=== PATIENT | female | born 1965 | race Two or more races ===

== ENCOUNTER 2017-03-30 16:48 | Inpatient (IN) | payer OTHER ==
[~2017-03-30] VITALS: Ht 157.5 cm; Wt 80.0 kg
[~2017-03-30 16:48] MED LIST: FER325 PO
[2017-03-30 17:40] VITALS: Ht 157.5 cm; Wt 80.0 kg
[2017-03-30 18:00] VITALS: BP 141/66; RESP 18
[2017-03-30] MEDS ORDERED: DOCUSATE SODIUM 100 MG CAP PO PRN (19:30)
[2017-03-30] MEDS ORDERED: hydrALAzine 20 MG INJ IV PRN (19:30)
[2017-03-30] MEDS ORDERED: NACL 0.9% 3 ML SYG IV SCH (19:30)
[2017-03-30] MEDS ORDERED: NITROGLYCERIN (SL) 0.4 MG TAB SL PRN (19:30)
[2017-03-30] MEDS ORDERED: ACETAMINOPHEN 325 MG TAB PO PRN (19:30)
[2017-03-30] MEDS ORDERED: morphine 2 MG INJ IV PRN (19:30)
[2017-03-30] MEDS ORDERED: ONDANSETRON 4 MG INJ IV PRN (19:30)
[2017-03-30] MEDS ORDERED: ALBUTEROL/IPRATROPIUM (NEB) 3 ML AMP HHN PRN (19:30)
[2017-03-30] MEDS ORDERED: LORAZEPAM 2 MG INJ IV PRN (19:30)
[2017-03-30] MEDS ORDERED: NA PHOSPHATE/BIPHOS 133 ML ENEMA PR PRN (19:30)
[2017-03-30] MEDS ORDERED: MAGNESIUM HYDROXIDE 30ML CUP PO PRN (19:30)
[2017-03-30 19:35] VITALS: BP 125/59; RESP 18
[2017-03-30] MEDS: SOD CHLORIDE 0.45% 1,000 ML IV SCH (20:11)
[2017-03-30 20:14] LABS: INR 1.18; PROTIME 15.1 Sec (12.2-14.2); PT RATIO 1.2
[2017-03-30 20:15] LABS: PARTIAL THROMBOPLASTIN TIME 29.1 Sec (25.0-35.0)
--- NOTE | 2017-03-30 20:34 | HP ---
DATE OF ADMISSION: 03/30/2017 CHIEF COMPLAINT: Low back pain, nausea, vomiting. HISTORY OF PRESENT ILLNESS: A 51-year-old female with past medical history of questionable ovarian mass diagnosed 1 month ago, anemia with prior blood transfusions, questionable heart disease, prior UTI, who was transferred from outside hospital due to insurance purposes. Apparently, she had presented over there with symptoms of low back pain for about 3 or 4 days as well as nausea symptoms. No hematuria, no dysuria. She also had some nonbilious, nonbloody vomiting symptoms. Denies any fevers or chills. No shortness of breath, no chest pain. Apparently she was in [place] about a month ago and had some kind of UTI infection and also told she was anemic at that time, but did not seek treatment. She was also told that she may be having some kind of mass in her uterus and ovary, but denies any vaginal bleeding or other upper or lower GI bleeding, or no pelvic discharge. When she had presented to the outside hospital today, she was found with a hemoglobin 6.2 and given 2 units of PRBC transfusion. Afterwards, they checked blood again before being transferred over here and hemoglobin came up to around 8.5 range. She also had imaging studies performed at the outside hospital. Specifically, CT abdomen and pelvis that does show a complex solid left adnexal mass measuring 7.7 by 5.7 by 7.2 cm, may represent a hemorrhagic cyst, underlying benign or malignant adnexal neoplasm cannot be excluded. They are recommending a gynecologic consult, and then she also had a chest x-ray that was performed and showed left upper lobe lung nodule, likely represents a calcified granuloma. She also had a pelvic ultrasound that showed a relatively large solid appearing left adnexal mass with likely some internal flow measuring 8.2 by 6.6 by 6.2 cm. The left ovary is not seen separate from the mass and may represent a hemorrhagic cyst as well. PAST MEDICAL HISTORY: As above. ALLERGIES: NO KNOWN DRUG ALLERGIES. HOME MEDICATIONS: Unknown. PAST SURGICAL HISTORY: She has had in the past. FAMILY HISTORY: Noncontributory. SOCIAL HISTORY: Occasional smoking history. PHYSICAL EXAMINATION: VITAL SIGNS: Today vital signs, T-max 99.0, pulse 86, respirations 18, blood pressure 141/66. GENERAL: The patient is lying in bed, in no acute distress. HEENT: Pupils equal, round, react to light. Extraocular muscles intact. NECK: Supple. No thyromegaly. LUNGS: Clear to auscultation bilaterally. CARDIOVASCULAR: S1, S2 heard. No rubs or gallops. ABDOMEN: Soft, nontender, nondistended. Normal bowel sounds. No rebound or guarding. MUSCULOSKELETAL: No lower extremity edema bilaterally. NEUROLOGIC: No focal deficits. LABORATORY DATA: Initial hemoglobin was 6.3, hematocrit 22.0 platelets 226, white count 6.6, and after the blood transfusion given earlier today, WBC 7.5, hemoglobin 8.7, hematocrit 27.6, platelets of 159. Sodium 137, potassium 3.3, chloride 106, CO2 22, BUN of 12, creatinine 0.46, glucose of 100. LFTs are normal except total bilirubin was 1.3 with a direct of 0.1. Beta hCG test was negative, UA was negative, nitrites negative, leukocyte esterase, although it was hazy. ASSESSMENT AND PLAN: A 51-year-old female with low back pain, abdominal pain, nausea and vomiting for 3 days with findings of adnexal mass and anemia. 1. Low back pain, abdominal pain, nausea, and vomiting,: Likely secondary to patient's adnexal mass as well as her anemia, so we will admit patient to medical/surgical floor. She has gotten PRBC transfusion and will follow post transfusion CBC. Will check TSH, A1c lipid panel, will get obstetric/gynecologic consult as well to further evaluate the adnexal mass. Put on IV fluids, pain control medications, antiemetics as well. If there are any significant abnormalities from the obstetric/gynecologic perspective regarding this adnexal mass, she may benefit from biopsy and/or gynecology/oncology consult, but will first follow up their recommendations. 2. History of prior urinary tract infections. Urinalysis on outside hospital was negative. Monitor for now. IV fluids. 3. History of prior anemia. Again, see number 1. 4. Questionable heart disease. Consider checking 2D echocardiogram. Vital signs appear to be stable at this point. 5. Gastrointestinal prophylaxis. PPI. 6. Deep vein thrombosis prophylaxis. SCDs. Dictated By: Junior Case MD /priscilla/jadielc /Document#: [id number]
[2017-03-30] MEDS: HEPARIN 5,000 UNIT/0.5 ML VIAL SC SCH (21:00)
--- NOTE | 2017-03-30 21:01 | CONS ---
Date/Time of Note Date/Time of Note DATE: 03/30/17 TIME: 20:01 Assessment/Plan Assessment/Plan Additional Assessment/Plan 51yo perimenopausal P2 with LUQ pain, a large symptomatic pelvic mass and symptomatic anemia being admitted for management of anemia ->Discussed with pt results from U/S and CT scan and differential diagnosis includes benign and malignant etiologies ->Exam today w/o concern for acute gynecological process such as torsion or cyst rupture ->Recommend checking CA-125 and obtaining a Gynecologic Oncology consult ->Will defer management of anemia and LUQ pain to primary team Patient's questions answered to her satisfaction based on the information currently available Consultation Date/Type/Reason Admit Date/Time Mar 30, 2017 at 17:04 Type of Consultation: Gynecology Reason for Consultation pelvic mass Hx of Present Illness 51yo with long hx of anemia and multiple transfusions (every 6mths in [place] [facility] [place] service 2/2 symptomatic anemia requiring transfusion as well as LUQ and pelvic pain. Pt has known hx of pelvic mass and associated abdominal pain, worsening over the last 3d. Pt states she has had 8wks of intermittent pelvic pain, at times worse than others. She had an ultrasound 2mths ago in [place] and was diagnosed with a pelvic mass and was recommended to see a specialist, however she never followed up. On 03/25, pt states the pain became worse and remained so for the next few days. Pt has been taking ASA 230mg x4 for pain with good effect. Tolerating POs, denies N/V at this time, vaginal bleeding, or vaginal discharge. Pain currently minimal states pt at 5/10. Declines need for pain meds. PERIODONTIST Hx: s/p C/S x2. LMP 03/04/17. Regular qmth menses since 07/2016, prior to this, menses were irregular (skipping 1-2 months at a time). Between 2012- 2014 pt states she was amenorrheic. +dysmenorrhea, +heavy bleeding. +hot flashes x6yrs. Med Hx: anemia, otherwise denies Surg Hx: C/S x2 Soc Hx: , monogamous relationship x33yrs U beta hCG negative (from [facility]) US Pelvis (03/30/17 0752 from [facility]) Uterus measures 15x8.6x5.8cm. Posterior fundal intramural fibroid measures 3.9x3.5x2.1cm. Endometrial echo complex diffusely heterogenous and measures up to 16mm. No significant blood/fluid or debris in the endometrial cavity. No increased flow in the EEC region. No significant pelvic free fluid. Right ovarian volume is 26mL. A simple appearing right ovarian cyst or follicle is noted measuring up to 2.5cm. Normal flow documented to the right ovary. The left ovary is not seen. A relatively large solid-appearing left adnexal mass noted with likely some internal flow with color Doppler. The mass is heterogenous in echotexture and measures about 8.2x6.6x6.2cm by ultrasound. This may represent a hemorrhagic cyst. Adnexal origin cannot be excluded. Underlying benign or malignant adnexal neoplasm also cannot be excluded. CT A/P (03/30/17 0255 from [facility]) Complex solid left adnexal mass measures 7.7x5.7x7.2cm. Internal high attenuation may represent blood products. This may represent a hemorrhagic cyst. The left ovary is not seen separate from the mas by CT or ultrasound. Adnexal torsion is on the differential. Underlying benign or malignant adnexal neoplasm also can't be excluded. No pelvic free fluid. Small bilateral external iliac and inguinal lymph nodes. Small right lower quadrant mesenteric lymph nodes. Social History Smoking Status: Current some day smoker Drug Use: none Exam/Review of Systems Vital Signs Vitals Vital Signs Date Time Temp Pulse Resp B/P Pulse Ox O2 Delivery O2 Flow Rate FiO2 03/30/17 19:35 98.2 18 125/59 99 03/30/17 18:00 86 Exam Pt declines pelvic exam Constitutional: alert, obese, oriented, No distress Head: atraumatic, normocephalic Eyes: nl conjunctiva Respiratory: clear to auscultation Cardiovascular: regular rate and rhythm Gastrointestinal: bowel sounds, soft, tender (generalized TTP in LUQ, RLQ, LLQ , worse LUQ and RLQ), No distended, No mass, No rebound or guarding Medications Medications Current Medications Ondansetron HCl (Zofran Inj) 4 mg Q6H PRN IV NAUSEA AND/OR VOMITING; Start 03/30 at 19:30 Acetaminophen (Tylenol Tab) 650 mg Q6H PRN PO PAIN LEVEL 1-3 OR FEVER; Start at 19:30 Acetaminophen/ Hydrocodone Bitart ([place] (5/325)) 1 tab Q6H PRN PO MODERATE PAIN LEVEL 4-6; Start 03/30/17 at 19:30 Morphine Sulfate (morphine) 2 mg Q4H PRN IV SEVERE PAIN LEVEL 7-10; Start at 19:30 Docusate Sodium (Colace) 100 mg Q12H PRN PO CONSTIPATION; Start 03/30/17 at 19: 30 Magnesium Hydroxide (Milk Of Mag) 30 ml DAILY PRN PO CONSTIPATION; Start at 19:30 Sodium Biphosphate/ Sodium Phosphate (Fleet Enema) 133 ml DAILY PRN [place] CONSTIPATION; Start 03/30/17 at 19:30 Pantoprazole (Protonix Tab) 40 mg DAILY@06 PO ; Start 03/31/17 at 06:00 Heparin Sodium (Porcine) 5000 unit 5,000 unit Q12 SC ; Start 03/30/17 at 21:00 Sodium Chloride (1/2 NS) 1,000 ml @ 75 mls/hr [id number] IV ; Start 03/30/17 at 19: 30 Lorazepam (Ativan) 0.5 mg Q6H PRN IV ANXIETY; Start 03/30/17 at 19:30 Hydralazine HCl (Apresoline) 10 mg Q6H PRN IV SBP GREATER THAN 180; Start at 19:30 Nitroglycerin (Nitroglycerin (Sl Tab) 0.4 Mg) 1 tab Q5M PRN SL ANGINA; Start at 19:30 CHRIS RHODES MD Mar 30, 2017 20:11
[2017-03-31 02:12] VITALS: BP 128/63; RESP 18
[2017-03-31] MEDS: PANTOPRAZOLE (EC) 40 MG TAB PO SCH (06:29)
[2017-03-31 06:55] LABS: ABNORMAL IP MESSAGE 1; BASOPHILS % 0.5 % (0.0-2.0); EOSINOPHILS # 0.1 10^3/ul (0.0-0.5); EOSINOPHILS % 1.2 % (0.0-7.0); HEMATOCRIT 27.9 % (37.0-47.0); HEMOGLOBIN 7.6 g/dl (12.0-16.0); LYMPHOCYTES # 0.6 10^3/ul (0.8-2.9); LYMPHOCYTES % 9.8 % (15.0-51.0); MEAN CORPUSCULAR HEMOGLOBIN 18.3 pg (29.0-33.0); MEAN CORPUSCULAR HGB CONC 27.2 g/dl (32.0-37.0); MEAN CORPUSCULAR VOLUME 67.2 fl (82.0-101.0); MONOCYTE # 0.5 10^3/ul (0.3-0.9); NEUTROPHILS % 79.2 % (39.0-77.0); NUCLEATED RED BLOOD CELLS% 0.3 /100WBC (0.0-0.0); PLATELET COUNT 161 10^3/UL (140-415); RED BLOOD COUNT 4.15 10^6/ul (4.20-5.40); RED CELL DISTRIBUTION WIDTH 24.3 % (11.5-14.5)
[2017-03-31 07:14] LABS: POSITIVE DIFF @See below
[2017-03-31 07:30] LABS: CALCIUM 8.2 mg/dl (8.4-10.2); CHOL/HDL RATIO 3.2 RATIO; CREATININE 0.61 mg/dl (0.44-1.00); MAGNESIUM 1.9 mg/dl (1.7-2.5); PHOSPHORUS 4.7 mg/dl (2.5-4.9); POTASSIUM 3.1 mmol/L (3.5-5.1)
[2017-03-31] MEDS: HEPARIN 5,000 UNIT/0.5 ML VIAL SC SCH (09:00)
[2017-03-31] MEDS: SOD CHLORIDE 0.45% 1,000 ML IV SCH ×2 (09:28→22:10)
[2017-03-31 10:22] LABS: THYROID STIMULATING HORMONE 1.25 MIU/L (0.465-4.680)
[2017-03-31] MEDS ORDERED: POTASSIUM CHLORIDE (SR) 20 MEQ TAB PO STA (10:38)
--- NOTE | 2017-03-31 10:54 | PN ---
Date/Time of Note Date/Time of Note DATE: 03/31/17 TIME: 10:50 Assessment/Plan VTE Prophylaxis VTE Prophylaxis Intervention: contraindicated Lines/Catheters [facility] Per[facility] IV Assessment/Plan Chief Complaint/Hosp Course ASSESSMENT AND PLAN: A 51-year-old female with low back pain, abdominal pain, nausea and vomiting for 3 days with findings of adnexal mass and anemia. 1. Low back pain, abdominal pain, nausea, and vomiting,: Symptoms have improved since admission. Likely secondary to patient's adnexal mass as well as her anemia. She received 2 units PRBC transfusion yesterday. Hemoglobin 7.6 today. CA 125 was 12.3, normal. -Follow-up TSH, A1c lipid panel, as well as obstetric/gynecologic consult recommendation as well to further evaluate the adnexal mass. -Continue pain control medications, IV fluids, will also order for IV iron and check iron panel, although strong suspicion microcytic anemia secondary to iron deficiency -We will repeat hemoglobin/hematocrit, if still less than 8, consider another blood transfusion today. -We will also order for guaiac stool. 2. History of prior urinary tract infections. Urinalysis on outside hospital was negative. Monitor for now. IV fluids. 3. History of prior anemia. Again, see number 1. 4. Questionable heart disease. Consider checking 2D echocardiogram. Vital signs appear to be stable at this point. 5. Gastrointestinal prophylaxis. PPI. 6. Deep vein thrombosis prophylaxis. SCDs. Problems: Subjective 24 Hr Interval Summary Free Text/Dictation Denies any bleeding from below, no chest pain or abdominal pain. Seen by OB/ HAMPER MAKER team yesterday. Exam/Review of Systems Vital Signs Vitals Vital Signs Date Time Temp Pulse Resp B/P Pulse Ox O2 Delivery O2 Flow Rate FiO2 03/31/17 02:12 99.5 85 18 128/63 99 Intake and Output 03/30/17 03/30/17 03/31/17 15:00 23:00 07:00 Intake Total 400 ml Balance 400 ml Exam GENERAL: The patient is lying in bed, in no acute distress. HEENT: Pupils equal, round, react to light. Extraocular muscles intact. NECK: Supple. No thyromegaly. LUNGS: Clear to auscultation bilaterally. CARDIOVASCULAR: S1, S2 heard. No rubs or gallops. ABDOMEN: Soft, nontender, nondistended. Normal bowel sounds. No rebound or guarding. MUSCULOSKELETAL: No lower extremity edema bilaterally. NEUROLOGIC: No focal deficits. Results Result Diagram: 03/31/1726 03/31/17 0526 Results 24 hrs Laboratory Tests Test 03/30/17 19:26 03/31/17 05:26 Prothrombin Time 15.1 H Prothrombin Time Ratio 1.2 INR International Normalized Ratio 1.18 Activated Partial Thromboplast Time 29.1 Free Thyroxine 1.05 White Blood Count 6.0 Red Blood Count 4.15 L Hemoglobin 7.6 L Hematocrit 27.9 L Mean Corpuscular Volume 67.2 L Mean Corpuscular Hemoglobin 18.3 L Mean Corpuscular Hemoglobin Concent 27.2 L Red Cell Distribution Width 24.3 #H Platelet Count 161 Mean Platelet Volume Neutrophils % 79.2 H Lymphocytes % 9.8 L Monocytes % 9.0 Eosinophils % 1.2 Basophils % 0.5 Nucleated Red Blood Cells % 0.3 H Neutrophils # (Manual) 4.8 Lymphocytes # 0.6 L Monocytes # 0.5 Eosinophils # 0.1 Basophils # 0.0 Nucleated Red Blood Cells # 0.0 Sodium Level 138 Potassium Level 3.1 L Chloride Level 104 Carbon Dioxide Level 23 Anion Gap 14 Blood Urea Nitrogen 8 Creatinine 0.61 Glucose Level 87 Hemoglobin A1c 5.0 Calcium Level 8.2 L Phosphorus Level 4.7 Magnesium Level 1.9 Triglycerides Level 108 Cholesterol Level 115 LDL Cholesterol, Calculated 58 HDL Cholesterol 35 L Cholesterol/HDL Ratio 3.2 CA 125 Antigen 12.3 Thyroid Stimulating Hormone (TSH) 1.250 Medications Medications Current Medications Ondansetron HCl (Zofran Inj) 4 mg Q6H PRN IV NAUSEA AND/OR VOMITING Last administered on 03/30/17 21:42; Admin Dose 4 MG; Start 03/30/17 at 19:30 Acetaminophen (Tylenol Tab) 650 mg Q6H PRN PO PAIN LEVEL 1-3 OR FEVER; Start at 19:30 Acetaminophen/ Hydrocodone Bitart ([place] (5/325)) 1 tab Q6H PRN PO MODERATE PAIN LEVEL 4-6; Start 03/30/17 at 19:30 Morphine Sulfate (morphine) 2 mg Q4H PRN IV SEVERE PAIN LEVEL 7-10 Last administered on 03/30/17 21:42; Admin Dose 2 MG; Start 03/30/17 at 19:30 Docusate Sodium (Colace) 100 mg Q12H PRN PO CONSTIPATION; Start 03/30/17 at 19: 30 Magnesium Hydroxide (Milk Of Mag) 30 ml DAILY PRN PO CONSTIPATION; Start at 19:30 Sodium Biphosphate/ Sodium Phosphate (Fleet Enema) 133 ml DAILY PRN [place] CONSTIPATION; Start 03/30/17 at 19:30 Pantoprazole 40 mg 40 mg DAILY@06 PO Last administered on 03/31/17 06:29; Admin Dose 40 MG; Start 03/31/17 at 06:00 Sodium Chloride (1/2 NS) 1,000 ml @ 75 mls/hr [id number] IV Last administered on 03/31/17 09:28; Admin Dose 75 MLS/HR; Start 03/30/17 at 19:30 Lorazepam (Ativan) 0.5 mg Q6H PRN IV ANXIETY; Start 03/30/17 at 19:30 Hydralazine HCl (Apresoline) 10 mg Q6H PRN IV SBP GREATER THAN 180; Start at 19:30 Nitroglycerin (Nitroglycerin (Sl Tab) 0.4 Mg) 1 tab Q5M PRN SL ANGINA; Start at 19:30 SOCORRO HURTADO Mar 31, 2017 10:54
--- NOTE | 2017-03-31 10:58 | QN ---
Documentation Comment PROOFER Laborist PT d/w FOOD SAFETY SCIENTIST ONC, Dr. Rush, who requested additional labs: alpha fetoprotein, LDH, Bhcg and HE4. Dr. Rush has agreed to see the patient in consultation. Plan d/w on-call Hospitalist, Dr. Neely ([phone]). CHRIS RHODES MD Mar 31, 2017 10:58
[2017-03-31 11:03] LABS: HEMATOCRIT 28.8 % (37.0-47.0); HEMOGLOBIN 8.3 g/dl (12.0-16.0)
[2017-03-31 11:41] LABS: IRON 27 ug/dl (35-150)
[2017-03-31 11:50] LABS: TOTAL IRON BINDING CAPACITY 395 ug/dl (241-421)
[2017-03-31] MEDS: SOD FERRIC GLUC COMPLX 125 MG in SOD CHLORIDE 0.9% 100 ML IVPB SCH (13:23)
[2017-03-31 13:52] VITALS: BP 127/60; RESP 18
[2017-03-31 20:16] VITALS: BP 127/60; RESP 18
[2017-03-31] MEDS: HYDROCODONE/APAP (5/325) TAB PO PRN (22:24)
[2017-04-01 02:34] VITALS: BP 119/62; RESP 16
[2017-04-01] MEDS: SOD CHLORIDE 0.45% 1,000 ML IV SCH ×2 (05:05→11:30)
[2017-04-01] MEDS: PANTOPRAZOLE (EC) 40 MG TAB PO SCH (05:07)
[2017-04-01 06:18] LABS: ABNORMAL IP MESSAGE 1; EOSINOPHILS # 0.2 10^3/ul (0.0-0.5); EOSINOPHILS % 3.7 % (0.0-7.0); HEMATOCRIT 28.2 % (37.0-47.0); HEMOGLOBIN 7.6 g/dl (12.0-16.0); LYMPHOCYTES # 0.9 10^3/ul (0.8-2.9); MEAN CORPUSCULAR HEMOGLOBIN 18.6 pg (29.0-33.0); MEAN CORPUSCULAR VOLUME 69.1 fl (82.0-101.0); MONOCYTE # 0.5 10^3/ul (0.3-0.9); MONOCYTES % 13.1 % (0.0-11.0); NEUTROPHILS % 60.7 % (39.0-77.0); PLATELET COUNT 153 10^3/UL (140-415); RED BLOOD COUNT 4.08 10^6/ul (4.20-5.40); RED CELL DISTRIBUTION WIDTH 25.1 % (11.5-14.5); WHITE BLOOD COUNT 4.1 10^3/ul (4.8-10.8)
[2017-04-01 06:23] LABS: POSITIVE DIFF @See below
[2017-04-01 06:40] LABS: CALCIUM 8.5 mg/dl (8.4-10.2); CREATININE 0.62 mg/dl (0.44-1.00); POTASSIUM 3.5 mmol/L (3.5-5.1)
[2017-04-01 07:25] VITALS: BP 125/66; RESP 20
[2017-04-01] MEDS: SOD FERRIC GLUC COMPLX 125 MG in SOD CHLORIDE 0.9% 100 ML IVPB SCH (13:06)
--- NOTE | 2017-04-01 14:10 | CONS ---
Date/Time of Note Date/Time of Note DATE: 04/01/17 TIME: 14:08 Consultation Date/Type/Reason Admit Date/Time Mar 30, 2017 at 17:04 Reason for Consultation Jeet Parra M.D. [facility] History and Physical Examination Leatha Pacheco Date:Mar 31, 2017 :1965 Age: 51 Physicians: Consumer Affairs Manager Director Of Sales Support Oncologist Referring MD: History of the Present Illness: A 51 year old female with a gradually increasing pelvic mass. The mass is complex and 7-8 cm left sided with a normal CA-125 and associated with anemia, pain and N/V. There was a suggestion of a mass a month ago uncertain detail and now detail provided and transferred from [place]. Medical history/ROS: all other systems unremarkable. Surgical history: no significant abdominal procedures. Medications: reviewed gardisil Allergies: No active allergies recorded Family Hx: non-contributary Social HX: non-contributary ROS: as above Colonoscopy Physical Examination General: Alert. HEENT: Pupils are equal, round, reactive to light and accommodation. Neck: Supple with no masses of lymphadenopathy. Breast: Deferred due to recent examination and responsibility of primary care physician. Chest: Clear to auscultation Heart: Normal rhythm with no murmur. Abdomen: Moderately tender lower abd and s/p and LLQ with no rebound , no ascites nor organomeglay. Pelvic exam: deferred as she has refused mulltiple doctors Rectal: same Neurological: Grossly intact Ext: Nt no edema Assessment: Pelvic mass, likely intermittent torsions vs chronic corpus luteum, both accounting for anemia, vs cancer with hemorrhage (epithelial vs germ cell athough a bit elderly vs stromal cell) Plan: Discussed assessments and options with risks and benefits in detail with interprtors multiple times; 1- Will orer HE4 to further r/o epithelial, LDH, bHCG, aFP to r/o germ cell CA, and inhibin levels to r/o granulosa cell cancer although some may take a long time to get and surgery needed as mass with hematoma and pain is at risk for further anemia and infection; abscess; discssed in dedail 2- laparoscopic USO, possible possible hysterectomy with BSO, posible staging, possible open ANTICIPATE SATURDAY OR SAT PENDING OPERATING TIME AVAILABILITY. All risks and benefits of this procedure have been discussed in detail with the patient, as well as alternative treatment strategies and their implications. The patient is aware that there is some possibility of a blood transfusion and its associated risks and benefits. She wishes to proceed and gives her informed consent. Jeet Parra M.D. Social History Smoking Status: Current some day smoker Drug Use: none Exam/Review of Systems Vital Signs Vitals Vital Signs Date Time Temp Pulse Resp B/P Pulse Ox O2 Delivery O2 Flow Rate FiO2 04/01/17 07:25 98.3 59 20 125/66 99 Intake and Output 03/31/17 03/31/17 04/01/17 15:00 23:00 07:00 Intake Total 1110 ml 1600 ml 1700 ml Balance 1110 ml 1600 ml 1700 ml Results Result Diagram: 04/01/17 0514 04/01/17 0514 Results 24 hrs Laboratory Tests Test 04/01/17 05:14 White Blood Count 4.1 #L Red Blood Count 4.08 L Hemoglobin 7.6 L Hematocrit 28.2 L Mean Corpuscular Volume 69.1 L Mean Corpuscular Hemoglobin 18.6 L Mean Corpuscular Hemoglobin Concent 27.0 L Red Cell Distribution Width 25.1 H Platelet Count 153 Mean Platelet Volume Neutrophils % 60.7 Lymphocytes % 21.0 Monocytes % 13.1 H Eosinophils % 3.7 Basophils % 1.0 Nucleated Red Blood Cells % 0.0 Neutrophils # (Manual) 2.5 Lymphocytes # 0.9 Monocytes # 0.5 Eosinophils # 0.2 Basophils # 0.0 Nucleated Red Blood Cells # 0.0 Sodium Level 141 Potassium Level 3.5 Chloride Level 106 Carbon Dioxide Level 24 Anion Gap 15 Blood Urea Nitrogen 7 Creatinine 0.62 Glucose Level 75 Calcium Level 8.5 Medications Medications Current Medications Ondansetron HCl (Zofran Inj) 4 mg Q6H PRN IV NAUSEA AND/OR VOMITING Last administered on 03/30/17t 21:42; Admin Dose 4 MG; Start 03/30/17 at 19:30 Acetaminophen (Tylenol Tab) 650 mg Q6H PRN PO PAIN LEVEL 1-3 OR FEVER; Start at 19:30 Acetaminophen/ Hydrocodone Bitart ([place] (5/325)) 1 tab Q6H PRN PO MODERATE PAIN LEVEL 4-6 Last administered on 03/31/17 22:24; Admin Dose 1 TAB; Start 03/30 at 19:30 Morphine Sulfate (morphine) 2 mg Q4H PRN IV SEVERE PAIN LEVEL 7-10 Last administered on 03/30/17 21:42; Admin Dose 2 MG; Start 03/30/17 at 19:30 Docusate Sodium (Colace) 100 mg Q12H PRN PO CONSTIPATION; Start 03/30/17 at 19: 30 Magnesium Hydroxide (Milk Of Mag) 30 ml DAILY PRN PO CONSTIPATION; Start at 19:30 Sodium Biphosphate/ Sodium Phosphate (Fleet Enema) 133 ml DAILY PRN [place] CONSTIPATION; Start 03/30/17 at 19:30 Pantoprazole 40 mg 40 mg DAILY@06 PO Last administered on 04/01/17 05:07; Admin Dose 40 MG; Start 03/31/17 at 06:00 Sodium Chloride (1/2 NS) 1,000 ml @ 75 mls/hr [id number] IV Last administered on 04/01/17 05:05; Admin Dose 75 MLS/HR; Start 03/30/17 at 19:30 Lorazepam (Ativan) 0.5 mg Q6H PRN IV ANXIETY; Start 03/30/17 at 19:30 Hydralazine HCl (Apresoline) 10 mg Q6H PRN IV SBP GREATER THAN 180; Start at 19:30 Nitroglycerin 1 tab 1 tab Q5M PRN SL ANGINA; Start 03/30/17 at 19:30 Ferric Sodium Gluconate Complex/ Sodium Chloride (Ferrlecit/NS) 110 ml @ 100 mls/hr Q24H IVPB Last administered on 04/01/17 13:06; Admin Dose 100 MLS/HR; Start 03/31/17 at 13:00; Stop 04/02/17 at 14:05 JEET PARRA MD Apr 01, 2017 14:10
[2017-04-01 14:30] VITALS: BP 143/63; RESP 18
--- NOTE | 2017-04-01 15:54 | PN ---
Date/Time of Note Date/Time of Note DATE: 04/01/17 TIME: 15:49 Assessment/Plan VTE Prophylaxis VTE Prophylaxis Intervention: SCD's Lines/Catheters IV Catheter Type (from Nrsg): Peripheral IV Assessment/Plan Assessment/Plan 51 yo F presented with back pain, found to have adnexal mass and anemia. #adnexal mass: bicycle repairer onc following, OR likely later this week #anemia, iron deficiency: start PO iron. FOBT pending. Consider heavy periods as well? transfusion threshold: hgb<7 general diet SCDs only Subjective 24 Hr Interval Summary Free Text/Dictation Pt states she has more questions before proceeding with surgery Exam/Review of Systems Vital Signs Vitals Vital Signs Date Time Temp Pulse Resp B/P Pulse Ox O2 Delivery O2 Flow Rate FiO2 04/01/17 14:30 98.4 68 18 143/63 99 Intake and Output 03/31/17 03/31/17 04/01/17 15:00 23:00 07:00 Intake Total 1110 ml 1600 ml 1700 ml Balance 1110 ml 1600 ml 1700 ml Exam nad no mrg lungs clear abd soft no rashes Results Result Diagram: 04/01/17 0514 04/01/17 0514 Results 24 hrs Laboratory Tests Test 04/01/17 05:14 White Blood Count 4.1 #L Red Blood Count 4.08 L Hemoglobin 7.6 L Hematocrit 28.2 L Mean Corpuscular Volume 69.1 L Mean Corpuscular Hemoglobin 18.6 L Mean Corpuscular Hemoglobin Concent 27.0 L Red Cell Distribution Width 25.1 H Platelet Count 153 Mean Platelet Volume Neutrophils % 60.7 Lymphocytes % 21.0 Monocytes % 13.1 H Eosinophils % 3.7 Basophils % 1.0 Nucleated Red Blood Cells % 0.0 Neutrophils # (Manual) 2.5 Lymphocytes # 0.9 Monocytes # 0.5 Eosinophils # 0.2 Basophils # 0.0 Nucleated Red Blood Cells # 0.0 Sodium Level 141 Potassium Level 3.5 Chloride Level 106 Carbon Dioxide Level 24 Anion Gap 15 Blood Urea Nitrogen 7 Creatinine 0.62 Glucose Level 75 Calcium Level 8.5 Medications Medications Current Medications Ondansetron HCl (Zofran Inj) 4 mg Q6H PRN IV NAUSEA AND/OR VOMITING Last administered on 03/30/17t 21:42; Admin Dose 4 MG; Start 03/30/17 at 19:30 Acetaminophen (Tylenol Tab) 650 mg Q6H PRN PO PAIN LEVEL 1-3 OR FEVER; Start at 19:30 Acetaminophen/ Hydrocodone Bitart ([place] (5/325)) 1 tab Q6H PRN PO MODERATE PAIN LEVEL 4-6 Last administered on 03/31/17 22:24; Admin Dose 1 TAB; Start 03/30 at 19:30 Morphine Sulfate (morphine) 2 mg Q4H PRN IV SEVERE PAIN LEVEL 7-10 Last administered on 03/30/17 21:42; Admin Dose 2 MG; Start 03/30/17 at 19:30 Docusate Sodium (Colace) 100 mg Q12H PRN PO CONSTIPATION; Start 03/30/17 at 19: 30 Magnesium Hydroxide (Milk Of Mag) 30 ml DAILY PRN PO CONSTIPATION; Start at 19:30 Sodium Biphosphate/ Sodium Phosphate (Fleet Enema) 133 ml DAILY PRN [place] CONSTIPATION; Start 03/30/17 at 19:30 Pantoprazole 40 mg 40 mg DAILY@06 PO Last administered on 04/01/17 05:07; Admin Dose 40 MG; Start 03/31/17 at 06:00 Sodium Chloride (1/2 NS) 1,000 ml @ 75 mls/hr [id number] IV Last administered on 04/01/17 05:05; Admin Dose 75 MLS/HR; Start 03/30/17 at 19:30 Lorazepam (Ativan) 0.5 mg Q6H PRN IV ANXIETY; Start 03/30/17 at 19:30 Hydralazine HCl (Apresoline) 10 mg Q6H PRN IV SBP GREATER THAN 180; Start at 19:30 Nitroglycerin 1 tab 1 tab Q5M PRN SL ANGINA; Start 03/30/17 at 19:30 Ferric Sodium Gluconate Complex/ Sodium Chloride (Ferrlecit/NS) 110 ml @ 100 mls/hr Q24H IVPB Last administered on 04/01/17 13:06; Admin Dose 100 MLS/HR; Start 03/31/17 at 13:00; Stop 04/02/17 at 14:05 SAVANNAH JAVIER MD Apr 01, 2017 15:54
[2017-04-01 19:46] VITALS: BP 118/58; RESP 20
[2017-04-01] MEDS: FERROUS GLUCONATE (EC) 325 MG TAB PO SCH (22:10)
[2017-04-02] VITALS (17 sets, daily range): BP systolic 123–148; BP diastolic 62–73; PULSE 70–77; RESP 16–20
[2017-04-02 05:45] LABS: ABNORMAL IP MESSAGE 1; BASOPHILS % 0.7 % (0.0-2.0); EOSINOPHILS # 0.1 10^3/ul (0.0-0.5); EOSINOPHILS % 2.9 % (0.0-7.0); HEMATOCRIT 30.1 % (37.0-47.0); HEMOGLOBIN 8.3 g/dl (12.0-16.0); LYMPHOCYTES # 0.8 10^3/ul (0.8-2.9); MEAN CORPUSCULAR HEMOGLOBIN 19.3 pg (29.0-33.0); MEAN CORPUSCULAR HGB CONC 27.6 g/dl (32.0-37.0); MONOCYTE # 0.5 10^3/ul (0.3-0.9); MONOCYTES % 10.9 % (0.0-11.0); NEUTROPHILS % 67.3 % (39.0-77.0); PLATELET COUNT 179 10^3/UL (140-415); RED CELL DISTRIBUTION WIDTH 25.8 % (11.5-14.5); WHITE BLOOD COUNT 4.5 10^3/ul (4.8-10.8)
[2017-04-02 05:51] LABS: POSITIVE DIFF @See below
[2017-04-02 06:07] LABS: CALCIUM 8.8 mg/dl (8.4-10.2); CREATININE 0.6 mg/dl (0.44-1.00); POTASSIUM 3.5 mmol/L (3.5-5.1)
[2017-04-02] MEDS: FERROUS GLUCONATE (EC) 325 MG TAB PO SCH ×2 (08:17→21:00)
[2017-04-02] MEDS ORDERED: MAGNESIUM CITRATE 300 ML BTL PO ONE ×2 (11:00→11:30)
[2017-04-02] MEDS ORDERED: VASOPRESSIN 20 UNITS INJ ONE (14:59)
[2017-04-02] MEDS ORDERED: THROMBIN 5000 UNIT VIAL ONE (14:59)
[2017-04-02] MEDS ORDERED: METHYLENE BLUE 1% 10 ML INJ ONE (15:00)
[2017-04-02] MEDS ORDERED: SODIUM CL BACTERIOSTATIC 30 ML INJ ONE (15:09)
--- NOTE | 2017-04-02 18:42 | PN ---
Date/Time of Note Date/Time of Note DATE: 04/02/17 TIME: 18:42 Assessment/Plan VTE Prophylaxis VTE Prophylaxis Intervention: SCD's Lines/Catheters IV Catheter Type (from Nrsg): Peripheral IV Assessment/Plan Assessment/Plan 51 yo F presented with back pain, found to have adnexal mass and anemia. #adnexal mass: senior financial accountant onc following, OR today #anemia, iron deficiency: start PO iron. FOBT pending. Consider heavy periods as well? transfusion threshold: hgb<7 general diet SCDs only Subjective 24 Hr Interval Summary Free Text/Dictation Pt in OR at time of my attempted evaluation Exam/Review of Systems Vital Signs Vitals Vital Signs Date Time Temp Pulse Resp B/P Pulse Ox O2 Delivery O2 Flow Rate FiO2 04/02/17 14:03 98.0 76 18 142/71 100 Intake and Output 04/01/17 04/01/17 04/02/17 15:00 23:00 07:00 Intake Total 110 ml 1775 ml 500 ml Output Total 600 ml Balance 110 ml 1175 ml 500 ml Results Result Diagram: 04/02/17 0508 04/02/17 0508 Results 24 hrs Laboratory Tests Test 04/02/17 05:08 White Blood Count 4.5 L Red Blood Count 4.30 Hemoglobin 8.3 L Hematocrit 30.1 L Mean Corpuscular Volume 70.0 L Mean Corpuscular Hemoglobin 19.3 L Mean Corpuscular Hemoglobin Concent 27.6 L Red Cell Distribution Width 25.8 H Platelet Count 179 Mean Platelet Volume Neutrophils % 67.3 Lymphocytes % 18.0 Monocytes % 10.9 Eosinophils % 2.9 Basophils % 0.7 Nucleated Red Blood Cells % 0.0 Neutrophils # (Manual) 3.0 Lymphocytes # 0.8 Monocytes # 0.5 Eosinophils # 0.1 Basophils # 0.0 Nucleated Red Blood Cells # 0.0 Sodium Level 140 Potassium Level 3.5 Chloride Level 105 Carbon Dioxide Level 26 Anion Gap 13 Blood Urea Nitrogen 8 Creatinine 0.60 Glucose Level 77 Calcium Level 8.8 Medications Medications Current Medications Ondansetron HCl (Zofran Inj) 4 mg Q6H PRN IV NAUSEA AND/OR VOMITING Last administered on 03/30/17t 21:42; Admin Dose 4 MG; Start 03/30/17 at 19:30 Acetaminophen (Tylenol Tab) 650 mg Q6H PRN PO PAIN LEVEL 1-3 OR FEVER; Start at 19:30 Acetaminophen/ Hydrocodone Bitart ([place] (5/325)) 1 tab Q6H PRN PO MODERATE PAIN LEVEL 4-6 Last administered on 03/31/17 22:24; Admin Dose 1 TAB; Start 03/30 at 19:30 Morphine Sulfate (morphine) 2 mg Q4H PRN IV SEVERE PAIN LEVEL 7-10 Last administered on 03/30/17 21:42; Admin Dose 2 MG; Start 03/30/17 at 19:30 Docusate Sodium (Colace) 100 mg Q12H PRN PO CONSTIPATION; Start 03/30/17 at 19: 30 Magnesium Hydroxide (Milk Of Mag) 30 ml DAILY PRN PO CONSTIPATION; Start at 19:30 Sodium Biphosphate/ Sodium Phosphate (Fleet Enema) 133 ml DAILY PRN [place] CONSTIPATION; Start 03/30/17 at 19:30 Nitroglycerin (Nitroglycerin (Sl Tab) 0.4 Mg) 1 tab Q5M PRN SL ANGINA; Start at 19:30 Ferrous Gluconate (Fergon) 325 mg BID PO Last administered on 04/02/17 08:17; Admin Dose 325 MG; Start 04/01/17 at 21:00 SAVANNAH JAVIER MD Apr 02, 2017 18:42
[2017-04-02] MEDS ORDERED: GLYCOPYRROLATE 0.4 MG INJ ONE ×2 (19:38→20:57)
[2017-04-02] MEDS ORDERED: LIDOCAINE 2% (SDV) 5 ML INJ ONE (19:38)
[2017-04-02] MEDS ORDERED: NEOSTIGMINE 3 MG/3 ML SYRINGE ONE ×2 (19:38→20:57)
[2017-04-02] MEDS ORDERED: ROCURONIUM 50 MG INJ ONE (19:38)
[2017-04-02] MEDS ORDERED: SUCCINYLCHOLINE CHLORIDE 100 MG/5 ML SYG IV ONE (19:38)
[2017-04-02] MEDS ORDERED: PROPOFOL 20 ML ONE (19:38)
[2017-04-02] MEDS ORDERED: morphine SULFATE/PF (10 MG/10 ML) INJ ONE (19:41)
[2017-04-02] MEDS ORDERED: CEFAZOLIN 1 GM INJ ONE (20:57)
[2017-04-02] MEDS ORDERED: ONDANSETRON 4 MG INJ ONE (21:03)
[2017-04-02] MEDS ORDERED: METOCLOPRAMIDE 10 MG INJ ONE (21:03)
[2017-04-02] MEDS ORDERED: SUGAMMADEX SODIUM 200 MG/2 ML VIAL IV ONE (21:20)
[2017-04-02] MEDS ORDERED: morphine 2 MG INJ IV PRN (21:30)
[2017-04-02] MEDS ORDERED: HYDROCODONE/APAP (5/325) TAB PO PRN (21:30)
[2017-04-02] MEDS ORDERED: ACETAMINOPHEN 325 MG TAB PO PRN (21:30)
[2017-04-02] MEDS ORDERED: DIPHENHYDRAMINE 50 MG INJ IV PRN (21:30)
[2017-04-02] MEDS ORDERED: CEFAZOLIN 1 GM in SOD CHLORIDE 0.9% 100 ML IVPB SCH (21:30)
--- NOTE | 2017-04-02 21:42 | OPPN ---
Date/Time of Note Date/Time of Note DATE: 04/02/17 TIME: 21:40 Operative Report Preoperative Diagnosis Left adnexal mass associated with pain an anemia Postoperative Diagnosis Fibroid, broad ligament Operation/Procedure Performed Laparoscopy and D&C Anesthesia Type: general Estimated blood loss: minimal Transfusion Required: no Specimens EMB and ECC Grafts/Implants: none Complications: no ERASMO PARRA MD Apr 02, 2017 21:42
[2017-04-02 22:15] LABS: ABNORMAL IP MESSAGE 1; BASOPHILS % 0.4 % (0.0-2.0); EOSINOPHILS # 0.1 10^3/ul (0.0-0.5); EOSINOPHILS % 1.1 % (0.0-7.0); HEMATOCRIT 29.3 % (37.0-47.0); HEMOGLOBIN 7.9 g/dl (12.0-16.0); LYMPHOCYTES # 0.7 10^3/ul (0.8-2.9); LYMPHOCYTES % 15.6 % (15.0-51.0); MEAN CORPUSCULAR HEMOGLOBIN 18.9 pg (29.0-33.0); MEAN CORPUSCULAR VOLUME 70.3 fl (82.0-101.0); MONOCYTE # 0.3 10^3/ul (0.3-0.9); MONOCYTES % 7.2 % (0.0-11.0); NEUTROPHILS % 75.3 % (39.0-77.0); PLATELET COUNT 167 10^3/UL (140-415); RED BLOOD COUNT 4.17 10^6/ul (4.20-5.40); RED CELL DISTRIBUTION WIDTH 27.3 % (11.5-14.5); WHITE BLOOD COUNT 4.6 10^3/ul (4.8-10.8)
[2017-04-02 22:19] LABS: POSITIVE DIFF @See below
[2017-04-02 22:34] LABS: CALCIUM 8.5 mg/dl (8.4-10.2); CREATININE 0.57 mg/dl (0.44-1.00); POTASSIUM 3.4 mmol/L (3.5-5.1)
[2017-04-02] MEDS: LACTATED RINGER'S 1,000 ML IV SCH (23:01)
[2017-04-02] MEDS: metroNIDAZOLE 500 MG/NS (PMX) 100 ML IVPB SCH (23:02)
[2017-04-03] VITALS: BP 137/75; PULSE 77; RESP 19
[2017-04-03 01:00] VITALS: BP 129/76; PULSE 79; RESP 17
[2017-04-03 02:29] VITALS: BP 134/64; RESP 20
[2017-04-03] MEDS: CEFAZOLIN 1 GM/50 ML (PMX) 50 ML IVPB SCH ×3 (05:56→21:19)
[2017-04-03 06:17] LABS: ABNORMAL IP MESSAGE 1; BASOPHILS % 0.7 % (0.0-2.0); EOSINOPHILS % 0.7 % (0.0-7.0); HEMATOCRIT 28.3 % (37.0-47.0); HEMOGLOBIN 7.7 g/dl (12.0-16.0); LYMPHOCYTES # 0.7 10^3/ul (0.8-2.9); LYMPHOCYTES % 16.9 % (15.0-51.0); MEAN CORPUSCULAR HEMOGLOBIN 19.3 pg (29.0-33.0); MEAN CORPUSCULAR HGB CONC 27.2 g/dl (32.0-37.0); MEAN CORPUSCULAR VOLUME 71.1 fl (82.0-101.0); MONOCYTE # 0.3 10^3/ul (0.3-0.9); MONOCYTES % 7.3 % (0.0-11.0); NEUTROPHILS % 74.2 % (39.0-77.0); PLATELET COUNT 122 10^3/UL (140-415); RED BLOOD COUNT 3.98 10^6/ul (4.20-5.40); RED CELL DISTRIBUTION WIDTH 27.9 % (11.5-14.5); WHITE BLOOD COUNT 4.4 10^3/ul (4.8-10.8)
[2017-04-03 06:18] LABS: POSITIVE DIFF @See below
[2017-04-03] MEDS: metroNIDAZOLE 500 MG/NS (PMX) 100 ML IVPB SCH ×2 (06:38→14:26)
[2017-04-03 06:43] LABS: ALBUMIN 3.6 g/dl (3.3-4.9); ALBUMIN/GLOBULIN RATIO 1.09; BILIRUBIN,INDIRECT 1.4 mg/dl (0-1.1); BILIRUBIN,TOTAL 1.4 mg/dl (0.2-1.3); CALCIUM 8.4 mg/dl (8.4-10.2); CREATININE 0.59 mg/dl (0.44-1.00); MAGNESIUM 2.3 mg/dl (1.7-2.5); POTASSIUM 3.7 mmol/L (3.5-5.1); TOTAL PROTEIN 6.9 g/dl (6.1-8.1)
[2017-04-03 07:28] VITALS: BP 139/64; RESP 18
[2017-04-03] MEDS: LACTATED RINGER'S 1,000 ML IV SCH ×2 (07:29→11:21)
[2017-04-03] MEDS: FERROUS GLUCONATE (EC) 325 MG TAB PO SCH ×2 (08:36→21:19)
[2017-04-03] MEDS ORDERED: FAMOTIDINE 20 MG INJ IV SCH (09:00)
--- NOTE | 2017-04-03 15:10 | PN ---
Date/Time of Note Date/Time of Note DATE: 04/03/17 TIME: 14:57 Assessment/Plan VTE Prophylaxis VTE Prophylaxis Intervention: SCD's Lines/Catheters IV C[facility]ter Type (from [facility]): Peripheral IV Assessment/Plan Chief Complaint/Hosp Course probably symptomatic fibroids Problems: Assessment/Plan A- awaiting decision of patient as I had multiple discussions with helpful nurses P- LSH advised Subjective 24 Hr Interval Summary Free Text/Dictation Patient has minimal discomfort. + flatus no N/V. After in depth discussion with screen cleaner of finding or large broad ligament myoma and no adnexal mass despite imaging reports, and risks benefits of myomectomy vs hysterectomy and reasons not done yesterday patients initially ambivalent. Patient then gave different history and indicated severe menorrhagia for years, Exam/Review of Systems Vital Signs Vitals Vital Signs Date Time Temp Pulse Resp B/P Pulse Ox O2 Delivery O2 Flow Rate FiO2 04/03/17 07:28 98.1 69 18 139/64 96 04/03/17 01:00 Room Air 04/02/17 21:45 2.0 Intake and Output 04/02/17 04/02/17 04/03/17 15:00 23:00 07:00 Intake Total 2140 ml 970 ml Output Total 710 ml Balance 1430 ml 970 ml Exam Resp- clear CVS- nsr Abd- nt Ext- nt no edema Results Result Diagram: 04/03/17 0549 04/03/17 0549 Results 24 hrs Laboratory Tests Test 04/02/17 22:05 04/03/17 05:49 White Blood Count 4.6 L 4.4 L Red Blood Count 4.17 L 3.98 L Hemoglobin 7.9 L 7.7 L Hematocrit 29.3 L 28.3 L Mean Corpuscular Volume 70.3 L 71.1 L Mean Corpuscular Hemoglobin 18.9 L 19.3 L Mean Corpuscular Hemoglobin Concent 27.0 L 27.2 L Red Cell Distribution Width 27.3 H 27.9 H Platelet Count 167 122 #L Mean Platelet Volume Neutrophils % 75.3 74.2 Lymphocytes % 15.6 16.9 Monocytes % 7.2 7.3 Eosinophils % 1.1 0.7 Basophils % 0.4 0.7 Nucleated Red Blood Cells % 0.0 0.0 Neutrophils # (Manual) 3.4 3.3 Lymphocytes # 0.7 L 0.7 L Monocytes # 0.3 0.3 Eosinophils # 0.1 0.0 Basophils # 0.0 0.0 Nucleated Red Blood Cells # 0.0 0.0 Sodium Level 140 140 Potassium Level 3.4 L 3.7 Chloride Level 105 105 Carbon Dioxide Level 26 27 Anion Gap 12 12 Blood Urea Nitrogen 7 7 Creatinine 0.57 0.59 Glucose Level 86 76 Calcium Level 8.5 8.4 Magnesium Level 2.3 Total Bilirubin 1.4 H Direct Bilirubin 0.00 Indirect Bilirubin 1.4 H Aspartate Amino Transf (AST/SGOT) 25 Alanine Aminotransferase (ALT/SGPT) 36 Alkaline Phosphatase 57 Total Protein 6.9 Albumin 3.6 Globulin 3.30 H Albumin/Globulin Ratio 1.09 Medications Medications Current Medications Ondansetron HCl (Zofran Inj) 4 mg Q6H PRN IV NAUSEA AND/OR VOMITING Last administered on 03/30/17 21:42; Admin Dose 4 MG; Start 03/30/17 at 19:30 Acetaminophen (Tylenol Tab) 650 mg Q6H PRN PO PAIN LEVEL 1-3 OR FEVER; Start at 19:30 Acetaminophen/ Hydrocodone Bitart ([place] (5/325)) 1 tab Q6H PRN PO MODERATE PAIN LEVEL 4-6 Last administered on 03/31/17 22:24; Admin Dose 1 TAB; Start 03/30 at 19:30 Morphine Sulfate (morphine) 2 mg Q4H PRN IV SEVERE PAIN LEVEL 7-10 Last administered on 03/30/17 21:42; Admin Dose 2 MG; Start 03/30/17 at 19:30 Docusate Sodium (Colace) 100 mg Q12H PRN PO CONSTIPATION; Start 03/30/17 at 19: 30 Magnesium Hydroxide (Milk Of Mag) 30 ml DAILY PRN PO CONSTIPATION; Start at 19:30 Sodium Biphosphate/ Sodium Phosphate (Fleet Enema) 133 ml DAILY PRN [place] CONSTIPATION; Start 03/30/17 at 19:30 Nitroglycerin (Nitroglycerin (Sl Tab) 0.4 Mg) 1 tab Q5M PRN SL ANGINA; Start at 19:30 Ferrous Gluconate 325 mg 325 mg BID PO Last administered on 04/03/17 08:36; Admin Dose 325 MG; Start 04/01/17 at 21:00 Metronidazole (Flagyl 500 Mg (Pmx)) 100 ml @ 100 mls/hr Q8H IVPB Last administered on 04/03/17 14:26; Admin Dose 100 MLS/HR; Start 04/02/17 at 22:00; Stop 04/03/17 at 21:59 Morphine Sulfate (morphine) 2 mg Q2H PRN IV PAIN LEVEL 6-10; Start 04/02/17 at 21:30 Acetaminophen/ Hydrocodone Bitart ([place] (5/325)) 1 tab Q6H PRN PO PAIN LEVEL 6 -10; Start 04/02/17 at 21:30 Acetaminophen (Tylenol Tab) 650 mg Q6H PRN PO PAIN AND OR ELEVATED TEMP; Start 04/02/17 at 21:30 Diphenhydramine HCl (Benadryl) 25 mg Q6H PRN IV ITCHING; Start 04/02/17 at 21:30 Famotidine 20 mg 20 mg Q12 IV Last administered on 04/03/17 08:36; Admin Dose 20 MG; Start 04/03/17 at 09:00 Lactated Ringer's 1,000 ml @ 100 mls/hr Q10H IV Last administered on 04/03/17 11:21; Admin Dose 100 MLS/HR; Start 04/02/17 at 21:29 Cefazolin Sodium (Ancef 1 Gm/50 ml (Pmx)) 50 ml @ 100 mls/hr Q8H IVPB Last administered on 04/03/17 12:55; Admin Dose 100 MLS/HR; Start 04/03/17 at 05:00; Stop 04/04/17 at 04:59 ERASMO PARRA MD Apr 03, 2017 15:07
--- NOTE | 2017-04-03 15:17 | PN ---
Date/Time of Note Date/Time of Note DATE: 04/03/17 TIME: 15:14 Assessment/Plan VTE Prophylaxis VTE Prophylaxis Intervention: SCD's Lines/Catheters IV Catheter Type (from Nrsg): Peripheral IV Assessment/Plan Assessment/Plan 51 yo F presented with back pain, found to have adnexal mass and anemia. 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 rag washer onc advising hysterectomy, pt still deciding #anemia, iron deficiency: started PO iron. FOBT pending. Consider heavy periods as well-->per rag washer onc note pt has actually been having heavy periods for several years transfusion threshold: hgb<7 diet as per rag washer onc discharge as per rag washer onc Subjective 24 Hr Interval Summary Free Text/Dictation Pt denies much pain Exam/Review of Systems Vital Signs Vitals Vital Signs Date Time Temp Pulse Resp B/P Pulse Ox O2 Delivery O2 Flow Rate FiO2 04/03/17 07:28 98.1 69 18 139/64 96 04/03/17 01:00 Room Air 04/02/17 21:45 2.0 Intake and Output 04/02/17 04/02/17 04/03/17 15:00 23:00 07:00 Intake Total 2140 ml 970 ml Output Total 710 ml Balance 1430 ml 970 ml Exam nad no mrg lungs clear abd soft surgical sites c/d/i Results Result Diagram: 04/03/17 0549 04/03/17 0549 Results 24 hrs Laboratory Tests Test 04/02/17 22:05 04/03/17 05:49 White Blood Count 4.6 L 4.4 L Red Blood Count 4.17 L 3.98 L Hemoglobin 7.9 L 7.7 L Hematocrit 29.3 L 28.3 L Mean Corpuscular Volume 70.3 L 71.1 L Mean Corpuscular Hemoglobin 18.9 L 19.3 L Mean Corpuscular Hemoglobin Concent 27.0 L 27.2 L Red Cell Distribution Width 27.3 H 27.9 H Platelet Count 167 122 #L Mean Platelet Volume Neutrophils % 75.3 74.2 Lymphocytes % 15.6 16.9 Monocytes % 7.2 7.3 Eosinophils % 1.1 0.7 Basophils % 0.4 0.7 Nucleated Red Blood Cells % 0.0 0.0 Neutrophils # (Manual) 3.4 3.3 Lymphocytes # 0.7 L 0.7 L Monocytes # 0.3 0.3 Eosinophils # 0.1 0.0 Basophils # 0.0 0.0 Nucleated Red Blood Cells # 0.0 0.0 Sodium Level 140 140 Potassium Level 3.4 L 3.7 Chloride Level 105 105 Carbon Dioxide Level 26 27 Anion Gap 12 12 Blood Urea Nitrogen 7 7 Creatinine 0.57 0.59 Glucose Level 86 76 Calcium Level 8.5 8.4 Magnesium Level 2.3 Total Bilirubin 1.4 H Direct Bilirubin 0.00 Indirect Bilirubin 1.4 H Aspartate Amino Transf (AST/SGOT) 25 Alanine Aminotransferase (ALT/SGPT) 36 Alkaline Phosphatase 57 Total Protein 6.9 Albumin 3.6 Globulin 3.30 H Albumin/Globulin Ratio 1.09 Medications Medications Current Medications Ondansetron HCl (Zofran Inj) 4 mg Q6H PRN IV NAUSEA AND/OR VOMITING Last administered on 03/30/17 21:42; Admin Dose 4 MG; Start 03/30/17 at 19:30 Acetaminophen (Tylenol Tab) 650 mg Q6H PRN PO PAIN LEVEL 1-3 OR FEVER; Start at 19:30 Acetaminophen/ Hydrocodone Bitart ([place] (5/325)) 1 tab Q6H PRN PO MODERATE PAIN LEVEL 4-6 Last administered on 03/31/17 22:24; Admin Dose 1 TAB; Start 03/30 at 19:30 Morphine Sulfate (morphine) 2 mg Q4H PRN IV SEVERE PAIN LEVEL 7-10 Last administered on 03/30/17 21:42; Admin Dose 2 MG; Start 03/30/17 at 19:30 Docusate Sodium (Colace) 100 mg Q12H PRN PO CONSTIPATION; Start 03/30/17 at 19: 30 Magnesium Hydroxide (Milk Of Mag) 30 ml DAILY PRN PO CONSTIPATION; Start at 19:30 Sodium Biphosphate/ Sodium Phosphate (Fleet Enema) 133 ml DAILY PRN [place] CONSTIPATION; Start 03/30/17 at 19:30 Nitroglycerin (Nitroglycerin (Sl Tab) 0.4 Mg) 1 tab Q5M PRN SL ANGINA; Start at 19:30 Ferrous Gluconate 325 mg 325 mg BID PO Last administered on 04/03/17 08:36; Admin Dose 325 MG; Start 04/01/17 at 21:00 Metronidazole (Flagyl 500 Mg (Pmx)) 100 ml @ 100 mls/hr Q8H IVPB Last administered on 04/03/17 14:26; Admin Dose 100 MLS/HR; Start 04/02/17 at 22:00; Stop 04/03/17 at 21:59 Morphine Sulfate (morphine) 2 mg Q2H PRN IV PAIN LEVEL 6-10; Start 04/02/17 at 21:30 Acetaminophen/ Hydrocodone Bitart ([place] (5/325)) 1 tab Q6H PRN PO PAIN LEVEL 6 -10; Start 04/02/17 at 21:30 Acetaminophen (Tylenol Tab) 650 mg Q6H PRN PO PAIN AND OR ELEVATED TEMP; Start 04/02/17 at 21:30 Diphenhydramine HCl (Benadryl) 25 mg Q6H PRN IV ITCHING; Start 04/02/17 at 21:30 Famotidine 20 mg 20 mg Q12 IV Last administered on 04/03/17 08:36; Admin Dose 20 MG; Start 04/03/17 at 09:00 Lactated Ringer's 1,000 ml @ 100 mls/hr Q10H IV Last administered on 04/03/17 11:21; Admin Dose 100 MLS/HR; Start 04/02/17 at 21:29 Cefazolin Sodium (Ancef 1 Gm/50 ml (Pmx)) 50 ml @ 100 mls/hr Q8H IVPB Last administered on 04/03/17 12:55; Admin Dose 100 MLS/HR; Start 04/03/17 at 05:00; Stop 04/04/17 at 04:59 SAVANNAH JAVIER MD Apr 03, 2017 15:17
--- NOTE | 2017-04-03 16:22 | QN ---
Documentation Comment Had additional detailed discussion of findings with patient and daughter and in store banker and refinery operator helper crude unit and emphasized that mass noted on CT and KENDELL to be adnexal was actually broad ligament myoma and that a myomectomy was not done due to not being on consent and risks and hysterectomy not done because patient emphasized while doing consent and to my office staff who helped with translation/reiteration that she only wanted unilateral salpingoophorectomy and hysterectomy and BSO only if cancer. Note patient said to staff I was not to remove ovarian mass if found to be cancer and that given finding of fibroid hysterectomy perhaps could have been done and went back and forth but decided not to have it done. It was emphasized that it was not done due to the wish to avoid procedures if at all possible, not consented for unless part of cancer procedure and that a D&C was added to get info to add a LSH as an option in terms of safety and recovery. ERASMO PARRA MD Apr 03, 2017 16:22
[2017-04-03] MEDS: HYDROCODONE/APAP (5/325) TAB PO PRN (17:38)
[2017-04-03 19:55] VITALS: BP 128/59; RESP 18
[2017-04-03] MEDS: FAMOTIDINE 20 MG TAB PO SCH (21:19)
--- NOTE | 2017-04-03 21:33 | OPR ---
Date/Time of Note Date/Time of Note DATE: 04/03/17 TIME: 21:33 Operative Report Free Text/Dictation OPERATIVE REPORT [facility] Name: Leatha Pacheco Medical Date: 04/02/17 Preoperative Diagnosis: 1- Left adnexal mass 2- Pelvic pain 3- Anemia Postoperative Diagnosis: 1- Left broad ligament myoma 2-Pathology pending Procedures: 1- Laparoscopy 2-D&C Surgeon: Dr. Parra Cast Iron Drain Pipe Layer: Dr. Madden Anesthesia: General Indications for Procedure: The patient is a 51 year old female with an 8-cm solid left adnexal mass per CT and KENDELL and pain as well as anemia with normal markers as appropriate for the patients age, but she did not give a history of menorrhagia. After all options were presented with risks and benefits she agreed to a laparoscopy with a unilateral salpingoophorectomy and hysterectomy/BSO with staging only if needed due to a finding of malignancy. Findings and Summary After exploration we observed normal adnexa bilaterally with a large approximately 8cm broad based largely broad ligament fibroid/myoma on the left side that was probably misinterpreted on imaging as an adnexal mass. Because the patient was adamant about not doing a hysterectomy with discussions with Name: Leatha Pacheco Medical interpreters in the hospital preop and confirmed thru my office without known cancer and it was not on the consent as the primary procedure, and because a laparoscopic myomectomy had risk, a D&C was done to help reduce bleeding and rule out endometrial cancer and facilitate a laparoscopic supracervical hysterectomy if agreed to by the patient during the hospital stay. Procedure: After being prepped and draped in the usual manner sponge stick was placed in the vagina for manipulation, a 5-millimeter trocar was then inserted cephlad to the umbilicus without incident and the abdomen was insufflated to 15 mm Hg. Subsequently, we then placed two 5-millimeter trocars laterally under direct visualization and did not note any blood or nodularity. At this time minimal pelvic adhesions and omental adhesions were lysed with sharp dissection and a Omni or Thunderbeat. Subsequently we explored and noted normal adnexa bilaterally with a large approximately 8cm broad based largely broad ligament fibroid/myoma on the left side that was probably misinterpreted on imaging as an adnexal mass, and another small one. The location and size of the broad based pedicle precluded a straightforward myomectomy. Given the complexity, fact it was not on the consent and minimal blood available all precluded a myomectomy. Additionally, given the patients wishes to avoid a hysterectomy unless mandatory during a cancer procedure as confirmed by the hospital translators and my office and that it was not on the consent as the primary procedure, the decision was made to sample the endometrium to rule out endometrial cancer to offer the patient options postoperatively. The cervix was dilated and the endometrium and endocervix sampled without incident. The gas was removed and the skin of all sites then closed with 5-0 Monocryl suture. The EBL was minimal and the patient tolerated the procedure well and left the OR in good condition. Jeet Parra M.D. Anesthesia Type: general Estimated Blood Loss: minimal Transfusion Required: no Complications: no JEET PARRA MD Apr 03, 2017 21:33
[2017-04-04] MEDS: LACTATED RINGER'S 1,000 ML IV SCH ×2 (00:06→03:29)
[2017-04-04 02:15] VITALS: BP 142/67; RESP 18
[2017-04-04] MEDS: HYDROCODONE/APAP (5/325) TAB PO PRN (02:58)
[2017-04-04 07:23] VITALS: BP 137/71; RESP 18
[2017-04-04] MEDS: FAMOTIDINE 20 MG TAB PO SCH (09:09)
[2017-04-04] MEDS: FERROUS GLUCONATE (EC) 325 MG TAB PO SCH (09:09)
--- NOTE | 2017-04-04 09:36 | DS ---
Date/Time of Note Date/Time of Note DATE: 04/04/17 TIME: 09:36 Discharge Summary Admission/Discharge Info Admit Date/Time Mar 30, 2017 at 17:04 Discharge Date/Time Discharge Diagnosis vaginal bleeding, likely 2/2 fibroids Patient Condition: Guarded Consults gynecology, gynecologic oncology Procedures surgeries done here 9.5: Laparoscopy, D&C specimen removed: presumptive broad ligament myoma, PATHOLOGY PENDING hgbs: 7.6 on arrival--> 7.7 on 9. Of note pt transfused pertinent tumor marker labs CA 125: 12.3 (wnl) CA 19-9: 2.6 (wnl) AFP: 1.5 (wnl) bHcg: <2.4 (negative) OSH imaging obtained prior to admission CT A/P with complex solid L adnexal mass 7.7 by 5.7 by 7.2 cm, d/dx hemorrhagic cyst, underlying benign or malignant adnexal neoplasm cannot be excluded. pelvic ultrasound: relatively large solid appearing left adnexal mass with likely some internal flow measuring 8.2 by 6.6 by 6.2 cm. The left ovary is not seen separate from the mass and may represent a hemorrhagic cyst as well. Hx of Present Illness A 51-year-old female with past medical history of questionable ovarian mass diagnosed 1 month ago, anemia with prior blood transfusions, questionable heart disease, prior UTI, who was transferred from outside hospital due to insurance purposes. Apparently, she had presented over there with symptoms of low back pain for about 3 or 4 days as well as nausea symptoms. No hematuria, no dysuria. She also had some nonbilious, nonbloody vomiting symptoms. Denies any fevers or chills. No shortness of breath, no chest pain. Apparently she was in [place] about a month ago and had some kind of UTI infection and also told she was anemic at that time, but did not seek treatment. She was also told that she may be having some kind of mass in her uterus and ovary, but denies any vaginal bleeding or other upper or lower GI bleeding, or no pelvic discharge. When she had presented to the outside hospital today, she was found with a hemoglobin 6.2 and given 2 units of PRBC transfusion. Afterwards, they checked blood again before being transferred over here and hemoglobin came up to around 8.5 range. She also had imaging studies performed at the outside hospital. Specifically, CT abdomen and pelvis that does show a complex solid left adnexal mass measuring 7.7 by 5.7 by 7.2 cm, may represent a hemorrhagic cyst, underlying benign or malignant adnexal neoplasm cannot be excluded. They are recommending a gynecologic consult, and then she also had a chest x-ray that was performed and showed left upper lobe lung nodule, likely represents a calcified granuloma. She also had a pelvic ultrasound that showed a relatively large solid appearing left adnexal mass with likely some internal flow measuring 8.2 by 6.6 by 6.2 cm. The left ovary is not seen separate from the mass and may represent a hemorrhagic cyst as well. Hospital Course Pt transferred from [facility] for insurance purposes. Seen by ob gyn physician assistant and ob gyn physician assistant onc. She underwent laparoscopy and D&C on 04.02. Per ob gyn physician assistant onc surgeon, on direct visualization lesion noted on imaging looked more consistent with a broad ligament myoma---no ovarian/adnexal masses were seen. Biopsy obtained results of which are still pending at discharge. Pt's hgb downtrended after discharge however on the date of discharge, ., pt refused any additional lab work and stated she wanted to go home immediately. Risk of leaving without getting this test including concern that pt is still bleeding and that continued blood loss could result in debility and were discussed at length with pt and daughter using bilingual community service coordinator to facilitate communication. Pt continued to insist on leaving. Generic post laparoscopy instructions provided as pt left before ob gyn physician assistant onc surgeon was able to provide them. Home Meds Active Scripts Ferrous Sulfate* (Ferrous Sulfate*) 325 Mg Tabec, 325 MG PO BID, #60 3 Refills Prov:KAMINI HERNANDEZAL 02/24/15 Follow-up Plan I offered to call pt's associate chief nurse on the phone prior to discharge to relay events of pt's hospitalization, pt refused to provide me the information for her associate chief nurse I spoke with pt's PCP's office regarding the pending path results and also faxed them a copy of this discharge summary Primary Care Provider Allan Nazario Time spent on discharge: > 30 minutes SAVANNAH JAVIER MD Apr 04, 2017 09:36
--- NOTE | 2017-04-04 10:10 | PDOCDIS ---
Discharge Instructions DIAGNOSIS Discharge Diagnosis vaginal bleeding, likely 2/2 fibroids CONDITION Patient Condition: Guarded HOME CARE INSTRUCTIONS: Diet Instructions: RegularSpecial Diet: clear liquid FOLLOW UP/APPOINTMENTS Follow-up Plan Here is the contact info for Dr Pearson in case you are open to seeing him Please refer to the attached document for discharge instructions following laproscopic surgery. YOUR PATHOLOGY RESULTS ARE STILL PENDING. PLEASE ASK YOUR REGULAR DOCTOR TO CALL THE HOSPITAL EARLY NEXT WEEK TO GET THESE RESULTS TO ENSURE YOU DO NOT HAVE CANCER. If your vaginal bleeding continues, report to the nearest ER SAVANNAH JAVIER MD Apr 04, 2017 10:10
== END 2017-04-04 11:05 | disposition home or self-care (01) | DRG 745 ==
LOC: MS2 17:04
PROVIDERS: ADMIT Internal Medicine; ATTEND Internal Medicine
PROC: 0WJG4ZZ Inspection of Peritoneal Cavity, Percutaneous Endoscopic Approach (ICD-10-PCS; principal; 2017-04-03)
PROC: 0UDB7ZX Extraction of Endometrium, Via Natural or Artificial Opening, Diagnostic (ICD-10-PCS; 2017-04-03)
DX: D28.2 Benign neoplasm of uterine tubes and ligaments (principal); D50.9 Iron deficiency anemia, unspecified; D64.9 Anemia, unspecified; M54.9 Dorsalgia, unspecified; R11.2 Nausea with vomiting, unspecified; Z78.0 Asymptomatic menopausal state; R10.2 Pelvic and perineal pain; Z72.0 Tobacco use; N92.0 Excessive and frequent menstruation with regular cycle
CPT/HCPCS: 80048; 80053; 80061; 82105; 83036; 83540; 83615; 83735; 84100; 84439; 84443; 84702; 85014; 85018; 85025; 85610; 85730; 86301; 86304; 86305; 86850; 86900; 86901; 86920; 88305; J0690; J1644; J2270; J2274; J2405; J2710; J2765; J2916; J7120; J7999

== ENCOUNTER 2017-05-22 17:49 | Emergency (ER) | payer OTHER ==
[~2017-05-22] VITALS: Ht 152.4 cm; Wt 79.5 kg
[2017-05-22 17:51] VITALS: Ht 152.4 cm; Wt 79.5 kg
[2017-05-22] MEDS ORDERED: ACETAMINOPHEN 325 MG TAB PO ONE (22:30)
[2017-05-23] MEDS ORDERED: ACET500C5 PO (01:14)
--- NOTE | 2017-05-23 01:19 | ERD ---
ER Documentation Chief Complaint Chief Complaint LT KNEE PAIN X3 DAYS S/P FALL HPI 51-year-old female patient with no significant past medical history presents to the ED complaining of left knee pain that started 2 weeks ago for mechanical fall. States that she was at the [employer] accidentally tripped and fell. States that she landed directly on her left knee. Rates the pain a 8 out of 10. Describes the pain as achy. Denies any weakness, numbness or tingling of fever, chills, nausea, vomiting. ROS All systems reviewed and are negative except as per history of present illness. Medications Home Meds Active Scripts Acetaminophen* (Tylophen*) 500 Mg Capsule, 1 CAP PO Q6H Y for PAIN AND OR ELEVATED TEMP, #20 CAP Prov:BROOK DAMIAN PA-C 05/23/17 Ferrous Sulfate* (Ferrous Sulfate*) 325 Mg Tabec, 325 MG PO BID, #60 3 Refills Prov:RITO HERNANDEZ 02/24/15 Allergies Allergies: Coded Allergies: No Known Allergies (Verified Allergy, Mild, 02/08/16) PMhx/Soc Medical and Surgical Hx: pt denies Medical Hx History of Surgery: Yes Anesthesia Reaction: No Hx Neurological Disorder: No Hx Respiratory Disorders: No Hx Cardiac Disorders: No Hx Psychiatric Problems: No Hx Miscellaneous Medical Probl: No Hx Alcohol Use: No Hx Substance Use: No Hx Tobacco Use: No Smoking Status: Never smoker Physical Exam Vitals Vital Signs Date Time Temp Pulse Resp B/P Pulse Ox O2 Delivery O2 Flow Rate FiO2 05/22/17 17:51 98.6 76 16 125/67 98 Physical Exam Const: [id number], well-nourished. In no acute distress. Head: Atraumatic, normocephalic Eyes: Normal Conjunctiva without injection. No purulent discharge. PERRLA. EOMI ENT: Normal external ear. Ear canal without erythema. Tympanic membrane pearly mckeon without effusion or bulging. Nasal canal clear with normal turbinates. Moist oropharynx without tonsillar exudates. Non-erythematous pharynx. Uvula midline. No drooling. No trismus. Neck: No cervical midline tenderness. Full range of motion. No meningismus. No cervical lymphadenopathy. No JVD. Resp: Clear to auscultation bilaterally. No wheezing, rhonchi, rales, or crackles. No accessory muscle use. No retractions. Cardio: Regular rate and rhythm. No murmurs, rubs or gallops. Abd: Soft, non tender, non distended. Normal bowel sounds. No palpable masses. No rebound tenderness. No guarding. Negative McBurney's Point. Negative David's Sign. Skin: Normal skin turgor. No petechiae or rashes Back: No midline tenderness. No CVA tenderness. Ext: No cyanosis, or edema. Distal pulses intact bilaterally. Phimosis noted over the left knee. No erythema or edema. Tenderness palpation of the left patella, lateral collateral ligament. No erythema or edema. Neur: Awake and alert. Normal gait. Normal coordination. Cranial Nerves II- VII intact. Normal finger to nose. Muscle strength 5/5. Sensation intact. Psych: Normal Mood and Affect Results 24 hrs Current Medications Medications (Trade) Dose Ordered Sig/Ayanna Route PRN Reason Start Time Stop Time Status Last Admin Dose Admin Acetaminophen (Tylenol Tab) 650 mg ONCE ONCE PO 05/22/17 22:30 05/22/17 22:31 DC 05/22/17 22:33 Procedures/MDM 11-year-old female patient with no significant past medical history presents to the ED complaining of left knee pain that started intermittently for 2 weeks. Patient is afebrile nontoxic appearing. Patient has normal vital signs. A left knee x-ray was ordered to further evaluate patient. PROCEDURE: Left knee x-ray CLINICAL INDICATION: Left knee injury. TECHNIQUE: AP, tunnel and lateral views of the left knee were obtained. COMPARISON: None FINDINGS: There is normal mineralization. No acute fracture or dislocation is seen. There are no significant degenerative changes. There is no joint effusion. There is no significant soft tissue swelling. IMPRESSION: Normal x-ray of the left knee. RPTAT: UU Patient is placed in a imelda wrap. Patient is walking with a cane. Splint Assessment: Neurovascularly intact with imelda wrap placement with good fit. Patient likely sustained a knee sprain. Patient's extremity symptoms have stabilized while they have been evaluated in the department and are appropriate for outpatient follow up. No evidence of fractures, dislocations, compartment syndrome, neurologic injury, vascular injury, open joint, open fracture, tendon laceration, septic arthritis, osteomyelitis, DVT, foreign body, or other emergent conditions. Discharge medications: Tylenol Follow up with primary care physician in 1-2 days. Instructed patient to return to the ED sooner for any worsening symptoms. Patient's questions were answered. Patient understood and agreed with discharge plan. Patient discharged stable. Departure Diagnosis: Primary Impression: Left knee injury Encounter type: initial encounter Qualified Code: S89.92XA - Injury of left knee, initial encounter Condition: Stable Patient Instructions: Reducing Knee Pain and Swelling, Knee Pain, Meniscus Injury (Possible), Knee Pain, Uncertain Cause Referrals: [facility] YOU HAVE RECEIVED A MEDICAL SCREENING EXAM AND THE RESULTS INDICATE THAT YOU DO NOT HAVE A CONDITION THAT REQUIRES URGENT TREATMENT IN THE EMERGENCY DEPARTMENT. FURTHER EVALUATION AND TREATMENT OF YOUR CONDITION CAN WAIT UNTIL YOU ARE SEEN IN YOUR DOCTORS OFFICE WITHIN THE NEXT 1-2 DAYS. IT IS YOUR RESPONSIBILITY TO MAKE AN APPOINTMENT FOR FOLOW-UP CARE. IF YOU HAVE A PRIMARY DOCTOR --you should call your primary doctor and schedule an appointment IF YOU DO NOT HAVE A PRIMARY DOCTOR YOU CAN CALL OUR PHYSICIAN REFERRAL HOTLINE AT IF YOU CAN NOT AFFORD TO SEE A PHYSICIAN YOU CAN CHOSE FROM THE FOLLOWING [facility] [address] [facility]. [facility] [address] [facility]. [facility] [address] [facility]. [facility] [address] [facility]. [facility] [address] [facility]. [facility]. [address] [facility]. [facility] YOU HAVE RECEIVED A MEDICAL SCREENING EXAM AND THE RESULTS INDICATE THAT YOU DO NOT HAVE A CONDITION THAT REQUIRES URGENT TREATMENT IN THE EMERGENCY DEPARTMENT. FURTHER EVALUATION AND TREATMENT OF YOUR CONDITION CAN WAIT UNTIL YOU ARE SEEN IN YOUR DOCTORS OFFICE WITHIN THE NEXT 1-2 DAYS. IT IS YOUR RESPONSIBILITY TO MAKE AN APPOINTMENT FOR FOLOW-UP CARE. IF YOU HAVE A PRIMARY DOCTOR --you should call your primary doctor and schedule and appointment IF YOU DO NOT HAVE A PRIMARY DOCTOR YOU CAN CALL OUR PHYSICIAN REFERRAL HOTLINE AT . IF YOU CAN NOT AFFORD TO SEE A PHYSICIAN YOU CAN CHOSE FROM THE FOLLOWING [facility] INSTITUTIONS: [facility] [address] [place] [address] [facility] [address] [place] [address] [facility] [address] [place] [address] [facility] URGENT CARE/SPECIALTIES Additional Instructions: Call your primary care doctor TOMORROW for an appointment during the next 2-3 days.See the doctor sooner or return here if your condition worsens before your appointment time. BROOK DAMIAN PA-C May 23, 2017 01:19
--- NOTE | 2017-05-23 01:19 | ERD ---
ER Documentation Chief Complaint Chief Complaint LT KNEE PAIN X3 DAYS S/P FALL HPI 51-year-old female patient with no significant past medical history presents to the ED complaining of left knee pain that started 2 weeks ago for mechanical fall. States that she was at the [place] accidentally tri[place] and fell. States that she landed directly on her left knee. Rates the pain a 8 out of 10. Describes the pain as achy. Denies any weakness, numbness or tingling of fever, chills, nausea, vomiting. ROS All systems reviewed and are negative except as per history of present illness. Medications Home Meds Active Scripts Acetaminophen* (Tylophen*) 500 Mg Capsule, 1 CAP PO Q6H Y for PAIN AND OR ELEVATED TEMP, #20 CAP Prov:BROOK DAMIAN PA-C 05/23/17 Ferrous Sulfate* (Ferrous Sulfate*) 325 Mg Tabec, 325 MG PO BID, #60 3 Refills Prov:RITO HERNANDEZ 02/24/15 Allergies Allergies: Coded Allergies: No Known Allergies (Verified Allergy, Mild, 02/08/16) PMhx/Soc Medical and Surgical Hx: pt denies Medical Hx History of Surgery: Yes Anesthesia Reaction: No Hx Neurological Disorder: No Hx Respiratory Disorders: No Hx Cardiac Disorders: No Hx Psychiatric Problems: No Hx Miscellaneous Medical Probl: No Hx Alcohol Use: No Hx Substance Use: No Hx Tobacco Use: No Smoking Status: Never smoker Physical Exam Vitals Vital Signs Date Time Temp Pulse Resp B/P Pulse Ox O2 Delivery O2 Flow Rate FiO2 05/22/17 17:51 98.6 76 16 125/67 98 Physical Exam Const: [id number], well-nourished. In no acute distress. Head: Atraumatic, normocephalic Eyes: Normal Conjunctiva without injection. No purulent discharge. PERRLA. EOMI ENT: Normal external ear. Ear canal without erythema. Tympanic membrane pearly mckeon without effusion or bulging. Nasal canal clear with normal turbinates. Moist oropharynx without tonsillar exudates. Non-erythematous pharynx. Uvula midline. No drooling. No trismus. Neck: No cervical midline tenderness. Full range of motion. No meningismus. No cervical lymphadenopathy. No JVD. Resp: Clear to auscultation bilaterally. No wheezing, rhonchi, rales, or crackles. No accessory muscle use. No retractions. Cardio: Regular rate and rhythm. No murmurs, rubs or gallops. Abd: Soft, non tender, non distended. Normal bowel sounds. No palpable masses. No rebound tenderness. No guarding. Negative McBurney's Point. Negative David's Sign. Skin: Normal skin turgor. No petechiae or rashes Back: No midline tenderness. No CVA tenderness. Ext: No cyanosis, or edema. Distal pulses intact bilaterally. Phimosis noted over the left knee. No erythema or edema. Tenderness palpation of the left patella, lateral collateral ligament. No erythema or edema. Neur: Awake and alert. Normal gait. Normal coordination. Cranial Nerves II- VII intact. Normal finger to nose. Muscle strength 5/5. Sensation intact. Psych: Normal Mood and Affect Results 24 hrs Current Medications Medications (Trade) Dose Ordered Sig/Ayanna Route PRN Reason Start Time Stop Time Status Last Admin Dose Admin Acetaminophen (Tylenol Tab) 650 mg ONCE ONCE PO 05/22/17 22:30 05/22/17 22:31 DC 05/22/17 22:33 Procedures/MDM 11-year-old female patient with no significant past medical history presents to the ED complaining of left knee pain that started intermittently for 2 weeks. Patient is afebrile nontoxic appearing. Patient has normal vital signs. A left knee x-ray was ordered to further evaluate patient. PROCEDURE: Left knee x-ray CLINICAL INDICATION: Left knee injury. TECHNIQUE: AP, tunnel and lateral views of the left knee were obtained. COMPARISON: None FINDINGS: There is normal mineralization. No acute fracture or dislocation is seen. There are no significant degenerative changes. There is no joint effusion. There is no significant soft tissue swelling. IMPRESSION: Normal x-ray of the left knee. RPTAT: UU Patient is placed in a imelda wrap. Patient is walking with a cane. Splint Assessment: Neurovascularly intact with imelda wrap placement with good fit. Patient likely sustained a knee sprain. Patient's extremity symptoms have stabilized while they have been evaluated in the department and are appropriate for outpatient follow up. No evidence of fractures, dislocations, compartment syndrome, neurologic injury, vascular injury, open joint, open fracture, tendon laceration, septic arthritis, osteomyelitis, DVT, foreign body, or other emergent conditions. Discharge medications: Tylenol Follow up with primary care physician in 1-2 days. Instructed patient to return to the ED sooner for any worsening symptoms. Patient's questions were answered. Patient understood and agreed with discharge plan. Patient discharged stable. Departure Diagnosis: Primary Impression: Left knee injury Encounter type: initial encounter Qualified Code: S89.92XA - Injury of left knee, initial encounter Condition: Stable Patient Instructions: Reducing Knee Pain and Swelling, Knee Pain, Meniscus Injury (Possible), Knee Pain, Uncertain Cause [facility]errals: [facility] YOU HAVE RECEIVED A MEDICAL SCREENING EXAM AND THE RESULTS INDICATE THAT YOU DO NOT HAVE A CONDITION THAT REQUIRES URGENT TREATMENT IN THE EMERGENCY DEPARTMENT. FURTHER EVALUATION AND TREATMENT OF YOUR CONDITION CAN WAIT UNTIL YOU ARE SEEN IN YOUR DOCTORS OFFICE WITHIN THE NEXT 1-2 DAYS. IT IS YOUR RESPONSIBILITY TO MAKE AN APPOINTMENT FOR FOLOW-UP CARE. IF YOU HAVE A PRIMARY DOCTOR --you should call your primary doctor and schedule an appointment IF YOU DO NOT HAVE A PRIMARY DOCTOR YOU CAN CALL OUR PHYSICIAN REFERRAL HOTLINE AT IF YOU CAN NOT AFFORD TO SEE A PHYSICIAN YOU CAN CHOSE FROM THE FOLLOWING [facility] [address] [facility]. [facility] [address] [facility]. [facility] [address] [facility]. [facility] [address] [facility]. [facility] [address] [facility]. [facility]. [address] [facility]. [facility] YOU HAVE RECEIVED A MEDICAL SCREENING EXAM AND THE RESULTS INDICATE THAT YOU DO NOT HAVE A CONDITION THAT REQUIRES URGENT TREATMENT IN THE EMERGENCY DEPARTMENT. FURTHER EVALUATION AND TREATMENT OF YOUR CONDITION CAN WAIT UNTIL YOU ARE SEEN IN YOUR DOCTORS OFFICE WITHIN THE NEXT 1-2 DAYS. IT IS YOUR RESPONSIBILITY TO MAKE AN APPOINTMENT FOR FOLOW-UP CARE. IF YOU HAVE A PRIMARY DOCTOR --you should call your primary doctor and schedule and appointment IF YOU DO NOT HAVE A PRIMARY DOCTOR YOU CAN CALL OUR PHYSICIAN REFERRAL HOTLINE AT . IF YOU CAN NOT AFFORD TO SEE A PHYSICIAN YOU CAN CHOSE FROM THE FOLLOWING [facility] INSTITUTIONS: [facility] [address] [place] [address] [facility] [address] [place] [address] [facility] + [facility] [address] [place] [address] [facility] URGENT CARE/SPECIALTIES Additional Instructions: Call your primary care doctor TOMORROW for an appointment during the next 2-3 days.See the doctor sooner or return here if your condition worsens before your appointment time. BROOK DAMIAN PA-C May 23, 2017 01:19
--- NOTE | 2017-05-23 01:19 | ERD ---
ER Documentation Chief Complaint Chief Complaint LT KNEE PAIN X3 DAYS S/P FALL HPI 51-year-old female patient with no significant past medical history presents to the ED complaining of left knee pain that started 2 weeks ago for mechanical fall. States that she was at the [employer] accidentally tripped and fell. States that she landed directly on her left knee. Rates the pain a 8 out of 10. Describes the pain as achy. Denies any weakness, numbness or tingling of fever, chills, nausea, vomiting. ROS All systems reviewed and are negative except as per history of present illness. Medications Home Meds Active Scripts Acetaminophen* (Tylophen*) 500 Mg Capsule, 1 CAP PO Q6H Y for PAIN AND OR ELEVATED TEMP, #20 CAP Prov:BROOK DAMIAN PA-C 05/23/17 Ferrous Sulfate* (Ferrous Sulfate*) 325 Mg Tabec, 325 MG PO BID, #60 3 Refills Prov:RITO HERNANDEZ 02/24/15 Allergies Allergies: Coded Allergies: No Known Allergies (Verified Allergy, Mild, 02/08/16) PMhx/Soc Medical and Surgical Hx: pt denies Medical Hx History of Surgery: Yes Anesthesia Reaction: No Hx Neurological Disorder: No Hx Respiratory Disorders: No Hx Cardiac Disorders: No Hx Psychiatric Problems: No Hx Miscellaneous Medical Probl: No Hx Alcohol Use: No Hx Substance Use: No Hx Tobacco Use: No Smoking Status: Never smoker Physical Exam Vitals Vital Signs Date Time Temp Pulse Resp B/P Pulse Ox O2 Delivery O2 Flow Rate FiO2 05/22/17 17:51 98.6 76 16 125/67 98 Physical Exam Const: Xux-jsz-dairriisb, well-nourished. In no acute distress. Head: Atraumatic, normocephalic Eyes: Normal Conjunctiva without injection. No purulent discharge. PERRLA. EOMI ENT: Normal external ear. Ear canal without erythema. Tympanic membrane pearly mckeon without effusion or bulging. Nasal canal clear with normal turbinates. Moist oropharynx without tonsillar exudates. Non-erythematous pharynx. Uvula midline. No drooling. No trismus. Neck: No cervical midline tenderness. Full range of motion. No meningismus. No cervical lymphadenopathy. No JVD. Resp: Clear to auscultation bilaterally. No wheezing, rhonchi, rales, or crackles. No accessory muscle use. No retractions. Cardio: Regular rate and rhythm. No murmurs, rubs or gallops. Abd: Soft, non tender, non distended. Normal bowel sounds. No palpable masses. No rebound tenderness. No guarding. Negative McBurney's Point. Negative David's Sign. Skin: Normal skin turgor. No petechiae or rashes Back: No midline tenderness. No CVA tenderness. Ext: No cyanosis, or edema. Distal pulses intact bilaterally. Phimosis noted over the left knee. No erythema or edema. Tenderness palpation of the left patella, lateral collateral ligament. No erythema or edema. Neur: Awake and alert. Normal gait. Normal coordination. Cranial Nerves II- VII intact. Normal finger to nose. Muscle strength 5/5. Sensation intact. Psych: Normal Mood and Affect Results 24 hrs Current Medications Medications (Trade) Dose Ordered Sig/Ayanna Route PRN Reason Start Time Stop Time Status Last Admin Dose Admin Acetaminophen (Tylenol Tab) 650 mg ONCE ONCE PO 05/22/17 22:30 05/22/17 22:31 DC 05/22/17 22:33 Procedures/MDM 11-year-old female patient with no significant past medical history presents to the ED complaining of left knee pain that started intermittently for 2 weeks. Patient is afebrile nontoxic appearing. Patient has normal vital signs. A left knee x-ray was ordered to further evaluate patient. PROCEDURE: Left knee x-ray CLINICAL INDICATION: Left knee injury. TECHNIQUE: AP, tunnel and lateral views of the left knee were obtained. COMPARISON: None FINDINGS: There is normal mineralization. No acute fracture or dislocation is seen. There are no significant degenerative changes. There is no joint effusion. There is no significant soft tissue swelling. IMPRESSION: Normal x-ray of the left knee. RPTAT: UU Patient is placed in a imelda wrap. Patient is walking with a cane. Splint Assessment: Neurovascularly intact with imelda wrap placement with good fit. Patient likely sustained a knee sprain. Patient's extremity symptoms have stabilized while they have been evaluated in the department and are appropriate for outpatient follow up. No evidence of fractures, dislocations, compartment syndrome, neurologic injury, vascular injury, open joint, open fracture, tendon laceration, septic arthritis, osteomyelitis, DVT, foreign body, or other emergent conditions. Discharge medications: Tylenol Follow up with primary care physician in 1-2 days. Instructed patient to return to the ED sooner for any worsening symptoms. Patient's questions were answered. Patient understood and agreed with discharge plan. Patient discharged stable. Departure Diagnosis: Primary Impression: Left knee injury Encounter type: initial encounter Qualified Code: S89.92XA - Injury of left knee, initial encounter Condition: Stable Patient Instructions: Reducing Knee Pain and Swelling, Knee Pain, Meniscus Injury (Possible), Knee Pain, Uncertain Cause Referrals: [facility] YOU HAVE RECEIVED A MEDICAL SCREENING EXAM AND THE RESULTS INDICATE THAT YOU DO NOT HAVE A CONDITION THAT REQUIRES URGENT TREATMENT IN THE EMERGENCY DEPARTMENT. FURTHER EVALUATION AND TREATMENT OF YOUR CONDITION CAN WAIT UNTIL YOU ARE SEEN IN YOUR DOCTORS OFFICE WITHIN THE NEXT 1-2 DAYS. IT IS YOUR RESPONSIBILITY TO MAKE AN APPOINTMENT FOR FOLOW-UP CARE. IF YOU HAVE A PRIMARY DOCTOR --you should call your primary doctor and schedule an appointment IF YOU DO NOT HAVE A PRIMARY DOCTOR YOU CAN CALL OUR PHYSICIAN REFERRAL HOTLINE AT IF YOU CAN NOT AFFORD TO SEE A PHYSICIAN YOU CAN CHOSE FROM THE FOLLOWING [facility] [address] [facility]. [facility] [address] [facility]. [facility] [address] [facility]. [facility] [address] [facility]. [facility] [address] [facility]. [facility]. [address] [facility]. [facility] YOU HAVE RECEIVED A MEDICAL SCREENING EXAM AND THE RESULTS INDICATE THAT YOU DO NOT HAVE A CONDITION THAT REQUIRES URGENT TREATMENT IN THE EMERGENCY DEPARTMENT. FURTHER EVALUATION AND TREATMENT OF YOUR CONDITION CAN WAIT UNTIL YOU ARE SEEN IN YOUR DOCTORS OFFICE WITHIN THE NEXT 1-2 DAYS. IT IS YOUR RESPONSIBILITY TO MAKE AN APPOINTMENT FOR FOLOW-UP CARE. IF YOU HAVE A PRIMARY DOCTOR --you should call your primary doctor and schedule and appointment IF YOU DO NOT HAVE A PRIMARY DOCTOR YOU CAN CALL OUR PHYSICIAN REFERRAL HOTLINE AT . IF YOU CAN NOT AFFORD TO SEE A PHYSICIAN YOU CAN CHOSE FROM THE FOLLOWING [facility] INSTITUTIONS: [facility] [address] [place] [address] [facility] [address] [place] [address] [facility] [address] [place] [address] [facility] URGENT CARE/SPECIALTIES Additional Instructions: Call your primary care doctor TOMORROW for an appointment during the next 2-3 days.See the doctor sooner or return here if your condition worsens before your appointment time. BROOK DAMIAN PA-C May 23, 2017 01:19
--- NOTE | 2017-05-23 08:36 | RADRPT ---
PROCEDURE: Left knee x-ray CLINICAL INDICATION: Left knee injury. TECHNIQUE: AP, tunnel and lateral views of the left knee were obtained. COMPARISON: None FINDINGS: There is normal mineralization. No acute fracture or dislocation is seen. There are no significant degenerative changes. There is no joint effusion. There is no significant soft tissue swelling. IMPRESSION: Normal x-ray of the left knee. RPTAT: UU Physician Casandra Date Time Electronically viewed and signed by Physician Casandra on 05/22/2017 23:13 RS/
== END 2017-05-23 01:35 | disposition home or self-care (01) ==
LOC: FTE 17:49
DX: S89.92XA Unspecified injury of left lower leg, initial encounter (principal); W01.0XXA Fall on same level from slipping, tripping and stumbling without subsequent striking against object, initial encounter; Y92.9 Unspecified place or not applicable
CPT/HCPCS: 73562; Z7502; Z7610

== ENCOUNTER 2017-08-08 05:10 | Emergency (ER) | END 2017-08-08 06:24 | disposition home or self-care (01) ==

== ENCOUNTER 2017-08-23 17:01 | Emergency (ER) | END 2017-08-23 21:49 | disposition home or self-care (01) ==